=== PATIENT | female | born 1985 | race Caucasian/White ===

== ENCOUNTER 2018-04-27 13:19 | Outpatient (CLI) | payer OTHER | END 2018-04-27 13:20 | disposition home or self-care (01) | LOC: BICULT 13:19 | PROVIDERS: ATTEND Physician Assistant | DX: R10.2 Pelvic and perineal pain (principal) | CPT/HCPCS: 76856 ==

== ENCOUNTER 2018-05-11 08:31 | Outpatient (CLI) | payer OTHER ==
[2018-05-11] MEDS ORDERED: ISOVUE-370 76%-LOCM 1 ML ONE (11:55)
== END 2018-05-11 08:32 | disposition home or self-care (01) ==
LOC: BICCT 08:31
PROVIDERS: ATTEND Physician Assistant
DX: R10.32 Left lower quadrant pain (principal); R93.2 Abnormal findings on diagnostic imaging of liver and biliary tract; M86.9 Osteomyelitis, unspecified
CPT/HCPCS: 74177

== ENCOUNTER 2018-05-19 07:06 | Outpatient (CLI) | payer OTHER ==
--- NOTE | 2018-05-19 08:07 | ULT ---
GALLBLADDER ULTRASOUND: Date: 05/19/18 INDICATION: Right upper quadrant pain. No prior comparison. FINDINGS: There is no acute gallbladder pathology. There is a mild degree of gallbladder sludge visualized. Com mon duct is normal at 4 mm in diameter. Slight increased echogenicity of the hepatic parenchyma is pr esent. There is a focal anechoic focus with circumscribed margins and through-transmission of sound w ithin the hepatic parenchyma localizing to the right hepatic lobe which measures approximately 2 cm i ndicative of a cyst. Additional, smaller hypoechoic foci of the liver are also seen, some of which ar e too small to definitively characterize. There is no abdominal ascites. IMPRESSION: 1. Hepatic cysts. 2. No acute gallbladder pathology. 3. Increased echogenicity of the liver. Correlate with liver function enzymes, as this can be seen i n the setting of hepatic steatosis. POS: NITISH
== END 2018-05-19 07:07 | disposition home or self-care (01) ==
LOC: SCSULT 07:06
PROVIDERS: ATTEND Physician Assistant
DX: K76.9 Liver disease, unspecified (principal); K76.89 Other specified diseases of liver; R93.2 Abnormal findings on diagnostic imaging of liver and biliary tract
CPT/HCPCS: 76705